=== PATIENT | female | born 1970 | race Two or more races ===

== ENCOUNTER 2020-05-27 06:46 | Day surgery (SDC) | payer OTHER ==
[~2020-05-27 06:46] MED LIST: MULTIVITAMINS1 EAC9 PO; VITAMIN C PO; VITAMIN D310 MCG/1 M PO; ZESTORETIC 20-1 EAC1 PO
== END 2020-05-27 20:30 | disposition home or self-care (01) ==
LOC: CIR.AMB 06:46
PROVIDERS: ATTEND Surgery
DX: D24.2 Benign neoplasm of left breast (principal); Z20.828 Contact with and (suspected) exposure to other viral communicable diseases